=== PATIENT | male | born 1950 | race American Indian/Alaskan Native ===

== ENCOUNTER 2016-08-17 12:00 | Outpatient (CLI) | payer MEDICARE ==
[2016-08-17 12:40] LABS: Blood Urea Nitrogen 13 mg/dL (9-20)
[2016-08-17] MEDS ORDERED: NACL ONE (12:58)
--- NOTE | 2016-08-17 14:45 | Cat Scan Report ---
CT HEAD WITH CONTRAST: HISTORY: Left parotid mass. Serial contiguous axial images were obtained through the cranium, both before and after the administration of intravenous contrast material. The ventricles are normal in size and appearance. There is no mass effect or midline shift. No areas of abnormally increased or decreased attenuation are seen. No mass lesion is seen. The mastoid air cells and visualized portions of the sinuses are normal. The left parotid mass is not included in this exam. Please refer to the CT neck with contrast exam performed earlier today. IMPRESSION: Cranial CT scan within normal limits.
--- NOTE | 2016-08-17 14:48 | Cat Scan Report ---
CT NECK WITH CONTRAST: HISTORY: Left parotid mass. TECHNIQUE: Helical CT following IV contrast. Sagittal and coronal reformatted images. FINDINGS: A well circumscribed ovoid lesion in the left parotid gland measures 4.9 x 3.3 cm in axial plane. Internal density measures 3 Hounsfield units which is consistent with a cyst. There is no appreciable soft tissue component, calcifications or internal enhancement. The right parotid gland and submandibular glands are normal. The remaining soft tissue structures of the neck are within normal limits. The parapharyngeal soft tissues are unremarkable. Normal thyroid gland. Multilevel cervical spondylosis is evident. No suspicious bony lesion. 4.4 x 2.5 cm lipoma in the right occipital soft tissues is noted. IMPRESSION: 4.9 x 3.3 cm left parotid cyst. Overall, this has benign characteristics on CT. Consider further evaluation with ultrasound as needed. This should be amendable to ultrasound-guided aspiration if this lesion is truly cystic.
== END 2016-08-17 12:01 | disposition home or self-care (01) ==
LOC: CT 12:00
PROVIDERS: ATTEND Surgery
DX: D17.79 Benign lipomatous neoplasm of other sites (principal); K11.6 Mucocele of salivary gland; M47.892 Other spondylosis, cervical region
CPT/HCPCS: 36415; 70460; 70491; 82565; 84520; Q9967

== ENCOUNTER 2016-09-11 09:43 | Day surgery (SDC) | payer MEDICARE ==
--- NOTE | 2016-09-06 08:33 | Admit Criteria Form ---
Admission Criteria Documentation: AMBULATORY SURGERY EXCEPTION CRITERIA Ambulatory Surgery Exception Criteria ( Place 'X' for any and all applicable criteria): Surgery or procedure performed on ambulatory basis may require inpatient stay for[A] ANY ONE of the following(1)(2)(3)(4)(5)(6)(7)(8)(9): [X] I. A preoperative situation, condition, or finding that warrants inpatient stay as indicated by ANY ONE of the following: [X] a) Inpatient care needed because of severity of a disease or condition rather than the surgery (eg, severe cardiac or respiratory disease, severe infection) (15) (16 ) (17) (18) [] b) Emergent procedure (eg, angioplasty for acute ischemia)(19) [] c) Complex surgical approach or situation as indicated by ANY ONE of the following(3): [] i) Open approach needed instead of usual endoscopic, transcatheter, or other less invasive procedure [] ii) Difficult approach because of previous operation [] iii) Airway monitoring required after open neck procedures(20)(21) [] iv) Large mass requiring unusually extensive dissection [] v) Additional complicating feature requiring inpatient care (eg, drain management)(22(23): [] d) Major surgery in a pt with high anesthetic risk as indicated by ANY ONE of the following (2)(3)(5)(7)(8): [] i) ASA risk class III or higher (severe systemic disease impairing function) [D] [] ii) Advanced age (eg, older than 85 years)(14)(24) [] iii) Symptomatic heart failure(25) [] iv) Symptomatic asthma or COPD(8)(21) [] v) Morbid obesity with hemodynamic or respiratory problems(20)( 21)(26)(27) [] vi) Obstructive sleep apnea(20)(21) [] vii) Former premature infants who are younger than 60 weeks [] viii) High risk for severe postoperative abnormalities (eg, severe postoperative hypocalcemia after parathyroidectomy for severe hyperparathyroidism)(27)( 28) [] ix) Unstable angina(25) [] e) Drug-related risk requiring inpatient stay as indicated by ANY ONE of the following(5)(10)(14)(32)(33) [] i) Procedure requires discontinuing drugs or other therapy (eg , antiarrhythmic medication, antiseizure medication), which necessitates inpatient observation or treatment.(18)(31) [] ii) Major surgery and high risk drug use as indicated by ANY ONE of the following: [] 1) Active abuse of cocaine or similar drug [] 2) Monoamine oxidase inhibitor use [] 3) Other drug identified as posing risk [] f) Inadequate outpatient care situation as indicated by ANY ONE of the following(5)(10)(14)(32)(33) [] i) Patient lives remote from medical facility and procedure has urgent complication potential, and temporary nearby residence cannot be arranged [] ii) Patient will have postprocedure incapacitation and inadequate assistance at home, or alternative level of care cannot be arranged. [] iii) Patient will have long general anesthesia or procedure side effect resolution time, and competent person to stay with patient on first postoperative night at home or alternative level of care cannot be arranged. []iv) Other inadequate outpatient situation that cannot be handled by other means [] II. A perioperative event, condition, or finding that warrants inpatient stay as indicated by ANY ONE of the following (1)(2)(3): [] a) Inadequate physiologic recovery: cardiovascular, respiratory, or hemodynamic status not normal or near preoperative baseline(18) [] b) Hemodynamic instability [] c) Patient not alert with near normal or baseline mental status [] d) Temperature not normal or as expected and not appropriate for outpatient treatment of condition [] e) Ambulatory or appropriate activity level status not yet achieved post procedure [E](34)(35)(36) [] f) Operative site not appropriate (eg, unexpected or excessive drainage or bleeding) [] g) Postoperative effects not resolved or adequately managed (eg, significant pain or vomiting not appropriate for outpatient or next level of care)(10)(12) [] h) Complicating features requiring inpatient care as indicated by ANY ONE of the following(37): [] i) Severe complications of procedure (eg, bowel injury, airway compromise, vascular injury,severe hemorrhage) [] ii) Extensive (eg, dissection far beyond usual scope of procedure ) or prolonged (eg, 120 minutes beyond usual) surgery needed requiring inpatient postoperative care [] iii) Conversion to an open or complex procedure that requires inpatient care (eg, open vs laparoscopic cholecystectomy, abdominal vs vaginal hysterectomy)(38) [] iv) Comorbid condition or test result identified during or post procedure that requires inpatient care (7) [] v) Malignant hyperthermia(30) [] vi) Other complicating feature requiring inpatient care(22)(23) Inpatient stay may be needed until ALL of the following are present (1)(2)(3)(4) (5)(6)(10)(14)(33)(40): []a) Physiologic recovery: cardiovascular, respiratory, and hemodynamic status normal or near preoperative baseline []b) Hemodynamic stability []c) Patient alert, with near normal or baseline mental status []d) Temperature appropriate: patient afebrile or temperature appropriate for outpt treatment of condition []e) Activity level appropriate: ambulatory or appropriate activity level post procedure []f) Operative site appropriate as indicated by ALL of the following: []i) Site dry or with expected drainage []ii) Any blood noted is as expected for procedure. []g) Postoperative effects resolved or managed as indicated by ALL of the following: []i) Pain management appropriate for outpatient (or next level of) care(10) []ii) Minimal nausea and vomiting: if present, successfully treated with oral medication(12) []iii) Headache, dizziness, or drowsiness (if present) are mild. []h) Voiding status acceptable as indicated by ANY ONE of the following: []i) Voiding spontaneously []ii) No voiding but instructions given for follow-up in 6 to 8 hours []iii) Urinary catheter in place, and instructions given for follow-up []i) Complicating features requiring inpatient care manageable at a lower level of care(37) []j) Comorbid conditions manageable at a lower level of care(37) The original [employer] content created by [employer] has been revised. The portions of the content which have been revised are identified through the use of italic text or in bold, and [employer] has neither reviewed nor approved the modified material. All other unmodified content is copyright [employer]. Please see references footnoted in the original [employer] edition 2016
[~2016-09-11 09:43] MED LIST: ANCEF/STERILE WATER 2 GM/20 ML IV NR
[2016-09-11] MEDS ORDERED: NACL 0.9% 1000 ML 1,000 ML IV SCH (10:00)
[2016-09-11] MEDS ORDERED: VERSED IV NR (10:00)
[2016-09-11] MEDS ORDERED: PEPCID PO NR (10:00)
--- NOTE | 2016-09-11 10:20 | Anesthesia Consultation ---
Anesthesia Consult and Med Hx Date of service: 09/11/16 - Airway Anesthetic Teeth Evaluation: Poor ROM Head & Neck: Adequate Mental/Hyoid Distance: Adequate Mallampati Class: Class II Intubation Access Assessment: Good - Pulmonary Exam CTA: Yes - Cardiac Exam Cardiac Exam: RRR - Pre-Operative Health Status ASA Pre-Surgery Classification: ASA3 Proposed Anesthetic Plan: MAC - Pulmonary Hx Smoking: Yes (CIGARETTES 1/2 PPD X 44 YRS) Hx Sleep Apnea: No - Cardiovascular System Hx Hypertension: Yes (FOR 21 YRS) Hx Heart Attack/AMI: Yes (LIGHT ONE IN 1998) - Central Nervous System Hx Psychiatric Problems: No - Other Systems Hx Alcohol Use: Yes Hx Cancer: No
[2016-09-11] MEDS ORDERED: XYLOCAINE 1%/ EPI 1:100,000 INFILTRATI ONE ×2 (10:46→12:30)
[2016-09-11] MEDS ORDERED: MARCAINE 0.25% INFILTRATI ONE ×2 (10:46→12:30)
[2016-09-11] MEDS ORDERED: DIPRIVAN 10 MG/ML IV ONE ×2 (11:45→12:29)
[2016-09-11] MEDS ORDERED: ZOFRAN ONE (11:45)
[2016-09-11] MEDS ORDERED: XYLOCAINE MPF 2% ONE (11:45)
[2016-09-11] MEDS ORDERED: DECADRON ONE (11:45)
[2016-09-11] MEDS ORDERED: VERSED ONE ×2 (12:14→12:42)
[2016-09-11] MEDS ORDERED: NACL 0.9% IR ONE (12:30)
--- NOTE | 2016-09-11 12:55 | Post Operative Note ---
Pre-op diagnosis: Soft tissue mass scalp Post-op diagnosis: same Findings: Lipoma 5 cm x 5cm Procedure: Excision STM scalp Anesthesia: MAC Surgeon: SUSIE SHEA Estimated blood loss: minimal Pathology: list (lipoma scalp) Specimen disposition: to lab Condition: stable Disposition: PACU
--- NOTE | 2016-09-11 12:56 | Discharge Summary ---
Short Stay Discharge Plan Weight Bearing Status: Full Weight Bearing Diet: regular Wound: open to air Follow up with: PRIMARY CARE, [Primary Care Provider] - 7 Days Prescriptions: HYDROcodone/APAP 5-325 [[place] 5-325 mg TAB] 1 each PO Q4HR PRN #20 tablet PRN Reason: Pain
[2016-09-11 13:16] VITALS: BP 129/98
--- NOTE | 2016-09-20 09:10 | Operative Report ---
Operative Report Operative Report: Preop diagnosis; soft tissue mass scalp Postoperative diagnosis; same Operative procedure-excision of soft tissue mass Surgeon-Edward Date of procedure-August Anesthesia; MAC/local with Xylocaine and Marcaine [id number]-old male presented with a symptomatic visible and palpable mass in occipital area of the scalp measuring 7 cm x 5 cm Findings-subcutaneous lipoma with no inter-musculature extension Procedure patient was placed in supine position with the head tilted to the opposite side and the operative area was prepped and draped. Adequate IV sedation was given. Skin and subcutaneous tissue at the line of incision and the deeper the mass was completely excised and after ascertaining adequate hemostasis the wound was irrigated well with saline solution. Tissues were adequately infiltrated with local anesthesia. A 4 cm crease incision was made, subcutaneous tissue was divided and the mass was released from the subcutaneous tissues and the deeper tissues using minimal amount of cautery.- Sponge and instrument counts were reported to be correct. Subdermal tissue approximated with 3 0 Vicryl Skin margins were approximated with subcuticular 4 -0 Monocryl sutures. He tolerated the procedure well
== END 2016-09-11 14:30 | disposition home or self-care (01) ==
LOC: OR 09:43
PROVIDERS: ATTEND Surgery
DX: D17.0 Benign lipomatous neoplasm of skin and subcutaneous tissue of head, face and neck (principal); I11.0 Hypertensive heart disease with heart failure; I50.9 Heart failure, unspecified; I48.91 Unspecified atrial fibrillation; F17.210 Nicotine dependence, cigarettes, uncomplicated; Z79.899 Other long term (current) drug therapy; Z72.89 Other problems related to lifestyle; Z80.9 Family history of malignant neoplasm, unspecified
CPT/HCPCS: 21012; 88304; J0690; J1100; J2250; J2405; J2704; J7030; 88307

== ENCOUNTER 2017-01-09 09:27 | Emergency (ER) | payer MEDICARE ==
--- NOTE | 2017-01-09 10:28 | Cat Scan Report ---
CT scan of head without contrast: History: Neuro deficits. Findings: Ventricles are normal in size and midline in location. Mild cortical atrophy. No evidence of acute ischemia, hemorrhage or mass. No extra-axial fluid collection. Normal brainstem and cerebellum. Normal sinuses and mastoid air cells. Impression: Mild cortical atrophy. No acute intracranial abnormality.
[2017-01-09 10:33] LABS: Basophils % (Auto) 0.9 % (0.0-1.8); Eosinophils % (Auto) 2.8 % (0.0-4.3); Hematocrit 37.7 % (35.5-45.6); Hemoglobin 11.7 gm/dl (11.8-15.2); Mean Corpuscular HGB Conc 31 % (32-34); Mean Corpuscular Volume 78 fl (84-94); Platelet Count 153 K/mm3 (140-440); Red Blood Count 4.86 M/mm3 (3.65-5.03); Red Cell Distribution Width 15.7 % (13.2-15.2); White Blood Count 4.1 K/mm3 (4.5-11.0)
[2017-01-09 10:34] LABS: Mean Corpuscular Hemoglobin 24 pg (28-32)
[2017-01-09 10:50] LABS: INR 0.99 (0.87-1.13); Partial Thromboplastin Time 29.2 Sec. (24.2-36.6)
[2017-01-09 10:55] LABS: Anion Gap 15 mmol/L; BUN/Creatinine Ratio 9; Blood Urea Nitrogen 7 mg/dL (9-20); Calcium 8.9 mg/dL (8.4-10.2); Carbon Dioxide 26 mmol/L (22-30); Chloride 101.8 mmol/L (98-107); Glucose 104 mg/dL (75-100); Potassium 3.6 mmol/L (3.6-5.0); Sodium 139 mmol/L (137-145)
[2017-01-09 12:53] VITALS: BP 133/78
== END 2017-01-09 12:54 | disposition left against medical advice (07) ==
LOC: ED 09:27
DX: R20.0 Anesthesia of skin (principal); Z53.21 Procedure and treatment not carried out due to patient leaving prior to being seen by health care provider
CPT/HCPCS: 36415; 70450; 80048; 84484; 85025; 85610; 85670; 85730; 93005; 93010

== ENCOUNTER 2017-09-22 22:43 | Inpatient (IN) | payer MEDICARE ==
[2017-09-22] MEDS ORDERED: BABY ASPIRIN PO ONE (23:10)
--- NOTE | 2017-09-22 23:16 | Emergency Department Report ---
ED Syncope HPI - General Chief Complaint: Syncope Stated Complaint: LETHARGIC Time Seen by Provider: 09/22/17 23:03 Source: patient, family, EMS - History of Present Illness Initial Comments: Patient is 67-year-old male with history of carotid artery disease status post multiple stents before. Patient brought to the ER via EMS after a syncopal episode that continued for approximately 4 minutes. Family report patient told him that his heart was racing and then he started jerking and that he passed out. His stated that this is typical for him when he had his heart attack before. EMS reported that the patient blood pressure initially was 65/42. Patient is currently alert oriented 3 able to give clear history. Patient denied any chest pain or shortness of breath. He stated that he does not remember exactly what happened. Patient denied any fever, nausea or vomiting. Timing/Prior Episodes: remote history Context: sitting Loss of Consciousness: prolonged (minutes) Current Symptoms: back to normal - Related Data Allergies/Adverse Reactions: Allergies No Known Allergies Allergy (Verified 04/29/15 11:28) Home Medications: Ambulatory Orders Metoprolol [Lopressor TAB] 50 mg PO Q12H #60 tablet 01/27/16 Rivaroxaban [Xarelto] 20 mg PO QDAY 09/05/16 HYDROcodone/APAP 5-325 [[place] 5-325 mg TAB] 1 each PO Q4HR PRN #20 tablet ED Review of Systems ROS: Stated complaint: LETHARGIC Other details as noted in HPI Comment: All other systems reviewed and negative Constitutional: denies: chills, fever Respiratory: denies: cough Cardiovascular: denies: chest pain, palpitations, dyspnea on exertion, orthopnea , edema, syncope, paroxysmal nocturnal dyspnea Gastrointestinal: denies: abdominal pain, nausea, vomiting, diarrhea, constipation, hematemesis, melena, hematochezia Genitourinary: denies: urgency, dysuria, frequency, hematuria, discharge Neurological: denies: headache, weakness, numbness, paresthesias, confusion, abnormal gait ED Past Medical Hx - Past Medical History Hx Hypertension: Yes (FOR 21 YRS) Hx Heart Attack/AMI: Yes (LIGHT ONE IN 1998) Hx Congestive Heart Failure: Yes Hx HIV: No Additional medical history: AFlutter,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 - Surgical History Hx Coronary Stent: Yes Additional Surgical History: RIGHT WRIST SURGERY, Removal of left facial tumor, Removal of tumor from back of head - Social History Smoking Status: Never Smoker Substance Use Type: None - Medications Home Medications: Home Medications Medication Instructions Recorded Confirmed Last Taken Type Metoprolol [Lopressor TAB] 50 mg PO Q12H #60 tablet 01/27/16 09/22/17 09/11/16 Rx Rivaroxaban [Xarelto] 20 mg PO QDAY 09/05/16 09/22/17 09/06/16 History HYDROcodone/APAP 5-325 [[place] 1 each PO Q4HR PRN #20 tablet 09/11/16 09/22/17 Unknown Rx 5-325 mg TAB] ED Physical Exam - General Limitations: No Limitations General appearance: alert, in no apparent distress - Head Head exam: Present: atraumatic, normocephalic, normal inspection - Eye Eye exam: Present: normal appearance, PERRL - ENT ENT exam: Present: normal exam, normal orophraynx, mucous membranes moist - Neck Neck exam: Present: normal inspection, full ROM. Absent: tenderness, meningismus, lymphadenopathy, thyromegaly - Respiratory Respiratory exam: Present: normal lung sounds bilaterally - Cardiovascular Cardiovascular Exam: Present: regular rate, normal rhythm, normal heart sounds - GI/Abdominal GI/Abdominal exam: Present: soft, normal bowel sounds. Absent: distended, tenderness, guarding, rebound, rigid, organomegaly, mass, bruit, pulsatile mass , hernia - Extremities Exam Extremities exam: Present: normal inspection, full ROM, normal capillary refill - Back Exam Back exam: Present: normal inspection, full ROM. Absent: tenderness, CVA tenderness (R), CVA tenderness (L), muscle spasm, paraspinal tenderness, vertebral tenderness, rash noted - Neurological Exam Neurological exam: Present: alert, oriented X3, CN II-XII intact, normal gait - Skin Skin exam: Present: warm, intact, normal color ED Course Vital Signs 09/22/17 09/23/17 23:00 00:32 Temperature 97.8 F Pulse Rate 74 88 Respiratory 16 16 Rate Blood Pressure 117/80 Blood Pressure 102/69 [Left] O2 Sat by Pulse 97 96 Oximetry ED Medical Decision Making - Lab Data Result diagrams: 09/22/17 22:40 09/22/17 22:40 - EKG Data -: EKG Interpreted by Me EKG shows normal: sinus rhythm Rate: normal - EKG Data Interpretation: no acute changes - Radiology Data Radiology results: report reviewed Referring Physician: ELHAM AGRAWAL Patient Name: ETHAN SOMMERS Date of : 1950 Sex: Male Report Date: 2017-09-23 Report Status: Finalized Findings [facility] [address] [place] [address] Cat Scan Report Signed Patient: ETHAN SOMMERS MR#: [id number] : 1950 Acct:[id number] Age/Sex: 67 / M ADM Date: 09/22/17 Loc: ED Attending Dr: Ordering Physician: ELHAM AGRAWAL Date of Service: 09/23/17 Procedure(s): CT head/brain wo con Accession Number(s): [id number] cc: ELHAM AGRAWAL FINAL REPORT EXAM: CT HEAD/BRAIN WO CON HISTORY: syncope COMPARISON: CT of the head from December 2016. TECHNIQUE: Axial images obtained skull base through vertex. FINDINGS: No acute intracranial hemorrhage, midline shift or pathologic extra axial fluid collection. Age related volume loss with compensatory dilatation of the ventricular system and chronic small vessel ischemic disease. Otherwise, ace-white differentiation preserved. Calvarium grossly intact. Mild mucosal thickening the visualized paranasal sinuses. Mastoid air cells are clear. IMPRESSION: No grossly acute intracranial abnormality. Mild age related volume loss and chronic small vessel ischemic disease. Transcribed By: LMA Dictated By: MANISHA MAYS MD Electronically Authenticated By: MANISHA MAYS MD Signed Date/Time: 09/23/1718 DD/ TD/TT: 09/23/1718 - Medical Decision Making I discussed the patient with Dr. Shanon Maguire, she agreed to admit the patient to her service. Critical Care Time: Yes Critical care time in (mins) excluding proc time.: 30 Critical care attestation.: If time is entered above; I have spent that time in minutes in the direct care of this critically ill patient, excluding procedure time. ED Disposition Clinical Impression: Hypotensive episode, Syncope and collapse Disposition: - OP ADMIT IP TO THIS HOSP Is pt being admited?: Yes Condition: Stable Instructions: Syncope (ED) Referrals: PRIMARY CARE,MD [Primary Care Provider] - 3-5 Days
--- NOTE | 2017-09-22 23:33 | XRay Report ---
FINAL REPORT EXAM: XR CHEST 1V AP HISTORY: chest pain COMPARISON: None available. FINDINGS: Frontal view(s) of the chest obtained. Mild cardiac enlargement. Shallow inspiration. No focal consolidation or effusion. No pneumothorax. IMPRESSION: Mild cardiac enlargement. No focal consolidation.
[2017-09-22 23:54] LABS: Basophils % (Auto) 0.3 % (0.0-1.8); Eosinophils # (Auto) 0.1 K/mm3 (0.0-0.4); Eosinophils % (Auto) 0.7 % (0.0-4.3); Hematocrit 39.4 % (35.5-45.6); Lymphocytes # (Auto) 3.7 K/mm3 (1.2-5.4); Lymphocytes % (Auto) 49.3 % (13.4-35.0); Mean Corpuscular HGB Conc 33 % (32-34); Mean Corpuscular Hemoglobin 26 pg (28-32); Mean Corpuscular Volume 79 fl (84-94); Monocytes # (Auto) 0.7 K/mm3 (0.0-0.8); Monocytes % (Auto) 8.9 % (0.0-7.3); Platelet Count 157 K/mm3 (140-440); Red Blood Count 4.98 M/mm3 (3.65-5.03); Red Cell Distribution Width 15.8 % (13.2-15.2)
[2017-09-23 00:10] LABS: Partial Thromboplastin Time 24.6 Sec. (24.2-36.6)
[2017-09-23 00:19] LABS: INR 0.95 (0.87-1.13)
--- NOTE | 2017-09-23 00:24 | Cat Scan Report ---
FINAL REPORT EXAM: CT HEAD/BRAIN WO CON HISTORY: syncope COMPARISON: CT of the head from December 2016. TECHNIQUE: Axial images obtained skull base through vertex. FINDINGS: No acute intracranial hemorrhage, midline shift or pathologic extra axial fluid collection. Age related volume loss with compensatory dilatation of the ventricular system and chronic small vessel ischemic disease. Otherwise, ace-white differentiation preserved. Calvarium grossly intact. Mild mucosal thickening the visualized paranasal sinuses. Mastoid air cells are clear. IMPRESSION: No grossly acute intracranial abnormality. Mild age related volume loss and chronic small vessel ischemic disease.
[2017-09-23 00:30] LABS: Albumin 4.3 g/dL (3.9-5); Calcium 9.4 mg/dL (8.4-10.2)
[2017-09-23] MEDS ORDERED: TYLENOL PO PRN (02:28)
[2017-09-23 06:13] LABS: Creatine Kinase MB 5.2 ng/mL (0.0-4.0)
--- NOTE | 2017-09-23 09:05 | History and Physical Report ---
History of Present Illness Date of examination: 09/23/17 Date of admission: 09/23/17 02:32 Chief complaint: #1 dizziness 2. Shortness of breath 3. Passing out at home History of present illness: 67-year-old male admitted via the emergency room yesterday brought by ambulance after patient passed out at home. Patient stated that he started feeling bad after dinner yesterday, he became lightheaded, short of breath and while laying down started feeling dizzy and felt his heart racing. Patient stated that he attempted to get up but was unable to get up and started feeling dizzy. Patient 's stated that patient thereafter started shaking but no seizure activity reported was unable to get up and appeared disoriented and later briefly unresponsive. Patient's stated that the whole episode lasted about 5-10 minutes before the paramedics arrived. Upon arrival of EMS patient's blood pressure was reported to be low. Patient has history of hypertension and previous coronary artery disease and previous coronary stent placement in 2007 and patient stated that he has been otherwise stable but was reported to be having poor circulation in his right lower extremity by his visiting home nurse. 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 Ruiz. Patient denied any associated shortness of breath nausea vomiting or any additional symptoms during episode of dizziness. Patient denied any chest pain since onset of illness. Aside the time of evaluation patient stated that dizziness has subsided and he is not currently short of breath Past History Past Medical History: atrial fib, CAD, hypertension Social history: Family history: hypertension Medications and Allergies Allergies Allergy/AdvReac Type Severity Reaction Status Date / Time No Known Allergies Allergy Verified 04/29/15 11:28 Home Medications Medication Instructions Recorded Confirmed Last Taken Type Metoprolol [Lopressor TAB] 50 mg PO Q12H #60 tablet 01/27/16 09/22/17 09/11/16 Rx Rivaroxaban [Xarelto] 20 mg PO QDAY 09/05/16 09/22/17 09/06/16 History HYDROcodone/APAP 5-325 [[place] 1 each PO Q4HR PRN #20 tablet 09/11/16 09/22/17 Unknown Rx 5-325 mg TAB] Active Meds: Active Medications Acetaminophen (Tylenol) 650 mg PO Q6HR PRN PRN Reason: Pain, Mild (1-3) Metoprolol Tartrate (Lopressor) 50 mg PO Q12H DAVID Rivaroxaban (Xarelto) 20 mg PO QDAY DAVID; Protocol Review of Systems Constitutional: weakness Cardiovascular: palpitations, rapid/irregular heart beat, syncope, lightheadedness, shortness of breath, dyspnea on exertion Respiratory: shortness of breath Neurological: syncope Exam - Physical Exam Narrative exam: GENERAL:[] HEENT: [Head examination showed normocephalic. Patient is not pale, not jaundiced, and not cyanosed.] [Mucous membrane is moist, pharynx is clear, no exudates or hemorrhage. Dentition is normal.] NECK: [Supple. Neck showed good range of motion. There is no adenopathy noted. No jugular venous distention and no thyromegaly.] [Neck auscultation showed no carotid bruit.] CHEST/LUNGS: [Good air exchange bilaterally. Clear to auscultation. There is no respiratory distress noted. Chest percussion normal, symmetrical chest movements with no chest wall tenderness.] HEART/CARDIOVASCULAR: [No murmur. Regular rate and rhythm. S1 and S2 only, no S3 gallop, no S4.] ABDOMEN: [Abdomen is soft, nontender. Patient has normal bowel sounds. There is no abdominal distention. Liver and spleen not palpably enlarged.] SKIN: [There is no rash. There is no edema. There is no diaphoresis.] NEURO: [The patient is awake, alert, and oriented. The patient is cooperative. The patient has no focal neurologic deficits. Cranial nerves 2-12 grossly normal, power is 5/5 in all the extremities tested. The patient has normal speech and gait.] MUSCULOSKELETAL: [There is no tenderness or deformity. There is no limitation range of motion. There is no evidence of acute injury.] EXTREMITIES: [No pedal edema, no varicose veins, good peripheral pulses symmetrical and bilaterally, no pretibial edema, no finger or toe clubbing.] - Constitutional Vitals: Temp Pulse Resp BP Pulse Ox 98.6 F 60 20 107/76 96 09/23/17 07:55 09/23/17 08:00 09/23/17 07:55 09/23/17 07:55 09/23/17 07:55 Results - Labs CBC & Chem 7: 09/22/17 22:40 09/22/17 22:40 Labs: Abnormal lab results 09/22/17 09/22/17 09/23/17 Range/Units 22:40 22:40 05:06 MCV 79 L (84-94) fl MCH 26 L (28-32) pg RDW 15.8 H (13.2-15.2) % Lymph % (Auto) 49.3 H (13.4-35.0) % [place] % (Auto) 8.9 H (0.0-7.3) % Potassium 3.2 L (3.6-5.0) mmol/L Chloride 97.7 L (98-107) mmol/L Glucose 165 H (75-100) mg/dL Total Creatine Kinase 298 H (55-170) units/L CK-MB (CK-2) 5.2 H (0.0-4.0) ng/mL Assessment and Plan - Patient Problems (1) Hypotensive episode Current Visit: Yes Status: Acute (2) Syncope and collapse Current Visit: Yes Status: Acute (3) Hypertension Current Visit: No Status: Acute
[2017-09-23] MEDS: LOPRESSOR PO SCH ×2 (10:55→22:10)
[2017-09-23] MEDS: BABY ASPIRIN PO SCH (10:57)
[2017-09-23 16:54] LABS: Creatine Kinase MB 4.1 ng/mL (0.0-4.0)
[2017-09-23] MEDS: XARELTO PO SCH (18:59)
--- NOTE | 2017-09-24 05:21 | Consultation ---
HISTORY OF PRESENT ILLNESS: The patient is a 67-year-old male known to Dr. Johnson, who has a history of coronary artery disease, hypertension, atrial flutter. The chart describes history of heart failure and carotid disease, but the patient is unaware of this. He states that he feels tachycardia at times and occasionally has orthostatic dizziness. Three weeks ago, he was noted to have a low blood pressure. He had a syncopal episode at home today that was witnessed, lasted a few minutes and hypotension was noted by EMS. He did describe some palpitations, but no chest pain. He was short of breath. There has been no ankle edema or claudication. There has been no strokes or focal neurologic symptoms. Did not describe any GI disorders. He did not describe any infectious symptoms. PAST MEDICAL HISTORY: Smoking, he is a light ex-smoker. Alcohol: No heavy use. MEDICATIONS: See the nurse's list. ALLERGIES: None. OPERATIONS: None listed so far. PHYSICAL EXAMINATION: GENERAL: Well-developed, well-nourished, in no acute distress. Alert, oriented and cooperative. Mental status normal. EYES, NOSE AND THROAT: Unremarkable. NECK: Reveals no JVD or bruits. The right carotid upstroke is somewhat diminished. LUNGS: Clear. No labored respirations. HEART: Regular rhythm with a grade 2 systolic murmur at the left sternal border, possible S4. ABDOMEN: Soft, nontender, no masses. EXTREMITIES: No cyanosis, clubbing or edema. Peripheral pulses are intact, but somewhat diminished. NEUROLOGIC: Grossly symmetrical. SKIN: Clear. 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 IMPRESSION: 1. Syncope: Hypotension was documented. The patient described palpitations and there is a history of paroxysmal atrial flutter, so the palpitations could have been due to atrial flutter, but this would not normally cause syncope. Note that the QT interval is prolonged. The 12-lead shows sinus rhythm. He occasionally has orthostatic dizziness. So, the patient will be monitored for significant arrhythmias and orthostatic should be checked. 2. History of coronary artery disease: No angina. 3. History of carotid disease with diminished right carotid upstroke. 4. Hypertension with an episode of hypotension documented. 5. Vague history of congestive heart failure. 6. History of atrial flutter. 7. Light smoker about 3 cigarettes a day. 8. Systolic murmur: Consider mitral regurgitation. 9. Possible peripheral arterial disease with diminished peripheral pulses and visiting nurse told the patient that test showed some evidence of right leg peripheral vascular disease. PLAN: Check previous workup by Dr. Johnson. Check orthostatics. Monitor rhythm on telemetry. He can possibly go home tomorrow with a 30-day monitor on an outpatient basis. Thank you for this consultation. JOB# [id number] JDS/NTS
--- NOTE | 2017-09-24 09:28 | Discharge Summary ---
Providers - Providers Date of Admission: 09/23/17 02:32 Date of discharge: 09/24/17 Attending physician: ABDIRIZAK OCHOA 09/23/17 02:20 Consult to Cardiology [CONS] Routine Consulting Provider: ANGELA CALDWELL Reason For Exam: cardiac Primary care physician: RN [employer] Hospitalization Reason for admission: status post syncope, lightheadedness and dizziness and palpitation Condition: Stable Hospital course: 67-year-old male who was admitted on account of dizziness and passing out at home. There was no associated no chest pain but patient was short of breath and also reported to be hypotensive by the EMS on arrival. Patient has a history of coronary artery disease with previous stent placement and has had intermittent episode of atrial flutter in the past. Workup so far showed no evidence of cardiac ischemia and cardiac enzymes have been negative so far. Patient has not had any further episodes of dizziness since admission and CT scan of the head which was performed as the emergency room was reported to be negative for any acute cerebrovascular event. Patient was evaluated by medical consultant Dr. Maguire assessed to be stable with planned for outpatient 30 day monitoring for arrhythmia and follow-up with Dr. Roberts. Patient's blood pressure was reported to be running low on current dose of Lopressor and the plan will be to reduce the dose of Lopressor to half of the current dose to 25 mg. Blood pressure will continue to be monitored as outpatient and 30 day monitor for arrhythmia to be assessed by medical consultant as outpatient. Patient is stable at time of evalua and assessed to be stable enough to discharge. Disposition: DC- TO HOME OR SELFCARE - Discharge Diagnoses (1) Hypotensive episode Status: Acute (2) Syncope and collapse Status: Resolved (3) Hypertension Status: Chronic Qualifiers: Hypertension type: essential hypertension Qualified Code(s): I10 - Essential (primary) hypertension Core Measure Documentation - Palliative Care Palliative Care/ Comfort Measures: Not Applicable - Core Measures Any of the following diagnoses?: none Exam - Physical Exam Narrative exam: GENERAL:[] HEENT: [Head examination showed normocephalic. Patient is not pale, not jaundiced, and not cyanosed.] [Mucous membrane is moist, pharynx is clear, no exudates or hemorrhage. Dentition is normal.] NECK: [Supple. Neck showed good range of motion. There is no adenopathy noted. No jugular venous distention and no thyromegaly.] [Neck auscultation showed no carotid bruit.] CHEST/LUNGS: [Good air exchange bilaterally. Clear to auscultation. There is no respiratory distress noted. Chest percussion normal, symmetrical chest movements with no chest wall tenderness.] HEART/CARDIOVASCULAR: [No murmur. Regular rate and rhythm. S1 and S2 only, no S3 gallop, no S4.] ABDOMEN: [Abdomen is soft, nontender. Patient has normal bowel sounds. There is no abdominal distention. Liver and spleen not palpably enlarged.] SKIN: [There is no rash. There is no edema. There is no diaphoresis.] NEURO: [The patient is awake, alert, and oriented. The patient is cooperative. The patient has no focal neurologic deficits. Cranial nerves 2-12 grossly normal, power is 5/5 in all the extremities tested. The patient has normal speech and gait.] MUSCULOSKELETAL: [There is no tenderness or deformity. There is no limitation range of motion. There is no evidence of acute injury.] EXTREMITIES: [No pedal edema, no varicose veins, good peripheral pulses symmetrical and bilaterally, no pretibial edema, no finger or toe clubbing.] - Constitutional Vitals: Temp Pulse Resp BP Pulse Ox 97.8 F 78 18 109/79 97 09/24/17 04:52 09/24/17 07:58 09/24/17 04:52 09/24/17 04:52 09/24/17 04:52 Plan Activity: no restrictions Weight Bearing Status: Full Weight Bearing Diet: low cholesterol, low salt Special Instructions: record daily BP diary Follow up with: PRIMARY CAREMD [Primary Care Provider] - 3-5 Days Prescriptions: Metoprolol [Lopressor] 25 mg PO BID 60 Days tablet
[2017-09-24] MEDS: BABY ASPIRIN PO SCH (10:46)
[2017-09-24] MEDS: LOPRESSOR PO SCH ×2 (10:47→21:41)
--- NOTE | 2017-09-24 12:58 | Progress Note ---
Assessment and Plan 1. Syncope No events on tele ECG unchanged from previous Troponin negative x 3 2. Cardiomyopathy, Unspecified LVEF 44% by MPI and LVEF 50% by echo 01/2016 No ischemia by MPI 01/2016 3. Paroxysmal Atrial Fibrillation Patient is in SR today Continue xarelto and metoprolol 4. Abnormal Findings On Diagnostic Imaging Of Heart And Coronary Circulation Mildly dilated RV and RA by echo 01/2016 Recommendations: Continue tele monitoring Echo and MPI prior to discharge Carotid US prior to discharge Subjective Date of service: 09/24/17 Principal diagnosis: Syncope Interval history: Patient is doing well this morning. He denies chest pain or shortness of breath Objective Vital Signs Temp Pulse Resp BP BP Pulse Ox 09/24/17 11:59 98.3 F 57 L 18 119/79 99 09/24/17 10:47 60 109/80 09/24/17 07:58 78 09/24/17 07:50 98.3 F 69 18 107/78 99 09/24/17 04:52 97.8 F 77 18 109/79 97 09/24/17 00:28 98.0 F 63 18 108/80 98 09/23/17 22:12 70 09/23/17 22:10 69 105/77 09/23/17 20:00 98.2 F 69 18 105/77 94 09/23/17 18:00 74 09/23/17 17:10 98.1 F 74 20 108/81 97 09/23/17 17:08 98.1 F 74 20 108/81 99 - Physical Examination General: Appears Well HEENT: Positive: PERRL Neck: Positive: neck supple Cardiac: Positive: Reg Rate and Rhythm Lungs: Positive: Normal Exam Abdomen: Positive: Soft Extremities: Absent: edema - Labs and Meds Cardiac Enzymes 09/23/17 Range/Units Unknown CK-MB (CK-2) 4.1 H (0.0-4.0) ng/mL
[2017-09-24] MEDS: XARELTO PO SCH (18:10)
[2017-09-25] MEDS ORDERED: LEXISCAN IV ONE (09:00)
[2017-09-25] MEDS: LOPRESSOR PO SCH (10:29)
[2017-09-25] MEDS: BABY ASPIRIN PO SCH (10:29)
--- NOTE | 2017-09-25 10:36 | Treadmill Report ---
INDICATION FOR THE PROCEDURE: Syncope. ORDERING PHYSICIAN: Neda Johnson MD FINDINGS: There is no scintigraphic evidence of myocardial ischemia noted. The left ventricle is normal in size and systolic function. The left ventricular ejection fraction is measured at 60%. Normal wall motion and wall thickening is noted on gated imaging. CONCLUSION: 1. This is a normal perfusion scan with no scintigraphic evidence of myocardial ischemia. 2. This is a low-risk study with a 1-year cardiovascular event rate of less than 1%. JOB# [id number] MARYLIN/RUTHANN
--- NOTE | 2017-09-25 12:02 | Progress Note ---
Assessment and Plan 1. Syncope No events on tele ECG unchanged from previous Troponin negative x 3 LVEF 50-55% Normal MPI this admission < 50% carotid stenosis 2. Cardiomyopathy, Unspecified LVEF 44% by MPI and LVEF 50% by echo 01/2016 No ischemia by MPI 01/2016 3. Paroxysmal Atrial Fibrillation Patient is in SR today Continue xarelto and metoprolol 4. Abnormal Findings On Diagnostic Imaging Of Heart And Coronary Circulation Mildly dilated RV and RA by echo 01/2016 Recommendations: May go home cardiac fonseca Subjective Date of service: 09/25/17 Principal diagnosis: Syncope Interval history: No cardiac events overnight Objective Vital Signs Temp Pulse Resp BP BP Pulse Ox 09/25/17 10:00 63 09/25/17 08:50 81 128/91 09/25/17 08:49 83 118/88 09/25/17 08:48 84 115/86 09/25/17 08:47 91 H 113/83 09/25/17 08:46 79 127/92 09/25/17 08:45 60 125/92 09/25/17 07:32 97.9 F 20 118/88 09/25/17 04:58 98.4 F 68 20 121/88 98 09/25/17 04:19 67 121/88 99 09/25/17 04:18 66 20 121/88 98 09/25/17 01:04 98.2 F 58 L 18 121/88 90 09/25/17 00:02 58 L 98 09/25/17 00:01 98.2 F 57 L 20 121/88 98 09/24/17 21:41 66 140/91 09/24/17 21:20 69 09/24/17 20:43 97.8 F 66 18 140/91 99 09/24/17 19:51 66 99 09/24/17 16:16 98.1 F 63 18 121/82 98 - Physical Examination General: Appears Well HEENT: Positive: PERRL Neck: Positive: neck supple Cardiac: Positive: Reg Rate and Rhythm Lungs: Positive: Normal Exam Abdomen: Positive: Soft Extremities: Absent: edema
--- NOTE | 2017-09-25 12:09 | Progress Note ---
Subjective Date of service: 09/25/17 Principal diagnosis: Syncope Objective - Constitutional Vitals: Vital Signs - 12hr 09/25/17 09/25/17 09/25/17 01:04 04:18 04:19 Temperature 98.2 F Pulse Rate 58 L 66 67 Respiratory 18 20 Rate Blood Pressure 121/88 121/88 Blood Pressure 121/88 [Left] O2 Sat by Pulse 90 98 99 Oximetry 09/25/17 09/25/17 09/25/17 04:58 07:32 08:45 Temperature 98.4 F 97.9 F Pulse Rate 68 60 Respiratory 20 20 Rate Blood Pressure 118/88 125/92 Blood Pressure 121/88 [Left] O2 Sat by Pulse 98 Oximetry 09/25/17 09/25/17 09/25/17 08:46 08:47 08:48 Temperature Pulse Rate 79 91 H 84 Respiratory Rate Blood Pressure 127/92 113/83 115/86 Blood Pressure [Left] O2 Sat by Pulse Oximetry 09/25/17 09/25/17 09/25/17 08:49 08:50 10:00 Temperature Pulse Rate 83 81 63 Respiratory Rate Blood Pressure 118/88 128/91 Blood Pressure [Left] O2 Sat by Pulse Oximetry - Labs CBC & Chem 7: 09/22/17 22:40 09/22/17 22:40
[2017-09-25 12:29] VITALS: BP 116/82
== END 2017-09-25 15:15 | disposition home or self-care (01) | DRG 315 ==
LOC: ED 22:43 → 4A 09-23 02:32
PROVIDERS: ADMIT Internal Medicine; ATTEND Internal Medicine
DX: I95.9 Hypotension, unspecified (principal); I42.9 Cardiomyopathy, unspecified; I48.92 Unspecified atrial flutter; I11.0 Hypertensive heart disease with heart failure; I48.0 Paroxysmal atrial fibrillation; I50.9 Heart failure, unspecified; I25.10 Atherosclerotic heart disease of native coronary artery without angina pectoris; F17.210 Nicotine dependence, cigarettes, uncomplicated; Z95.5 Presence of coronary angioplasty implant and graft; Z82.49 Family history of ischemic heart disease and other diseases of the circulatory system; I25.2 Old myocardial infarction
CPT/HCPCS: 36415; 70450; 71045; 78452; 80053; 82550; 82553; 84484; 85025; 85379; 85610; 85730; 93005; 93010; 93017; 93306; 93880; 99406; A9502; J2785

== ENCOUNTER 2017-12-15 22:53 | Emergency (ER) | payer MEDICARE ==
[2017-12-15 23:23] VITALS: BP 127/89
[2017-12-15 23:48] LABS: Bilirubin,Urine NEG (Negative); Blood,Urine NEG (Negative); Color,Urine Yellow (Yellow); Mucus,Urine FEW /HPF; Protein,Urine <15 mg/dL mg/dL (Negative)
--- NOTE | 2017-12-16 00:16 | XRay Report ---
FINAL REPORT PROCEDURE: XR SHOULDER 2+V RT TECHNIQUE: Right shoulder radiographs including AP views in internal and external rotation and abduction. CPT 06464 HISTORY: Right Shoulder pain COMPARISON: No prior studies are available for comparison. FINDINGS: Fracture (s) and/or Dislocation(s): None . Joint space(s): Mild narrowing of the joint spaces. Soft tissues: Normal . Bone mineralization: Normal . Foreign bodies: None . IMPRESSION: Mild arthritis. No acute fracture or dislocation.
--- NOTE | 2017-12-16 00:26 | Emergency Department Report ---
ED General Adult HPI - General Chief complaint: Extremity Injury, Upper Stated complaint: RIGHT SHOULDER,BACK PAIN Time Seen by Provider: 12/16/17 00:25 Source: patient Mode of arrival: Ambulatory Limitations: No Limitations - History of Present Illness Initial comments: 67-year-old [place] male with a significant past medical history of hypertension A flutter comes in complaining of right shoulder and right side lower back pain. Patient reports that he's been having intermittent shoulder pain that radiates to his bicep. He reports that Matt on it makes it worse movement makes it better. 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 Patient reports taking Goody powders has helped in the last time he took it was 2 days ago. Patient also complains of right flank back pain that radiates to the top of his buttocks. He reports this pain is intermittent in response to Goody powders to patient reports that back pain and joint pain is worse in the morning when he gets up and gets better as she does movement. Patient denies any recent trauma. He denies any urine symptoms no hematuria. He denies any fever no nausea no vomiting. Patient reports that he still tries to take stay active he rides a bike. Patient is on the Xarelto, Lopressor, aspirin. Known drug allergies -: month(s) (1) Location: back, upper extremity Radiation: distal Severity scale (0 -10): 5 Quality: aching Consistency: intermittent Improves with: medication, movement (shoulder) Worsens with: immobilization Associated Symptoms: denies other symptoms Treatments Prior to Arrival: NSAID (Goody powders which reports has helped) - Related Data Home Medications Medication Instructions Recorded Confirmed Last Taken Rivaroxaban [Xarelto] 20 mg PO QDAY 09/05/16 09/22/17 09/06/16 Previous Rx's Medication Instructions Recorded Last Taken Type Aspirin [Aspirin BABY CHEW TAB] 81 mg PO QDAY tab.chew 09/24/17 Unknown Rx Metoprolol [Lopressor] 25 mg PO BID 60 Days tablet 09/24/17 Unknown Rx Rivaroxaban [Xarelto] 20 mg PO QPM tablet 09/24/17 Unknown Rx Acetaminophen [Tylenol Arthritis] 650 mg PO Q8H #30 tablet.er 12/16/17 Unknown Rx Allergies Allergy/AdvReac Type Severity Reaction Status Date / Time No Known Allergies Allergy Verified 04/29/15 11:28 ED Review of Systems ROS: Stated complaint: RIGHT SHOULDER,BACK PAIN Other details as noted in HPI Comment: All other systems reviewed and negative ED Past Medical Hx - Past Medical History Hx Hypertension: Yes (FOR 21 YRS) Hx Heart Attack/AMI: Yes (LIGHT ONE IN 1998) Hx Congestive Heart Failure: Yes Hx HIV: No Additional medical history: AFlutter,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 - Surgical History Hx Coronary Stent: Yes Additional Surgical History: RIGHT WRIST SURGERY, Removal of left facial tumor, Removal of tumor from back of head - Social History Smoking Status: Current Every Day Smoker Substance Use Type: None - Medications Home Medications: Home Medications Medication Instructions Recorded Confirmed Last Taken Type Rivaroxaban [Xarelto] 20 mg PO QDAY 09/05/16 09/22/17 09/06/16 History Aspirin [Aspirin BABY CHEW TAB] 81 mg PO QDAY tab.chew 09/24/17 Unknown Rx Metoprolol [Lopressor] 25 mg PO BID 60 Days tablet 09/24/17 Unknown Rx Rivaroxaban [Xarelto] 20 mg PO QPM tablet 09/24/17 Unknown Rx Acetaminophen [Tylenol Arthritis] 650 mg PO Q8H #30 tablet.er 12/16/17 Unknown Rx ED Physical Exam - General Limitations: No Limitations General appearance: alert, in no apparent distress - Head Head exam: Present: atraumatic, normocephalic - Eye Eye exam: Present: EOMI - ENT ENT exam: Present: mucous membranes moist - Neck Neck exam: Present: normal inspection, full ROM - Respiratory Respiratory exam: Present: normal lung sounds bilaterally. Absent: respiratory distress - Cardiovascular Cardiovascular Exam: Present: regular rate, normal rhythm. Absent: systolic murmur, diastolic murmur, rubs, gallop - GI/Abdominal GI/Abdominal exam: Present: soft. Absent: distended, tenderness - Expanded Upper Extremity Exam Right Shoulder Exam: Present: normal inspection, full ROM. Absent: tenderness Upper Arm exam: Present: normal inspection, full ROM. Absent: tenderness Elbow exam: Present: normal inspection, full ROM. Absent: tenderness, swelling Forearm Wrist exam: Present: normal inspection, full ROM. Absent: tenderness, swelling - Back Exam Back exam: Present: full ROM. Absent: tenderness, muscle spasm - Expanded Back Exam Expanded Back exam: Present: other (patient has a significant curvature which causes a right raise of his hip bone and protrusion of his right scapula) - Neurological Exam Neurological exam: Present: alert, oriented X3 - Psychiatric Psychiatric exam: Present: normal affect, normal mood - Skin Skin exam: Present: warm, dry, intact, normal color. Absent: rash ED Course Vital Signs 12/15/17 23:18 Temperature 98.7 F Pulse Rate 95 H Respiratory 16 Rate Blood Pressure 127/89 O2 Sat by Pulse 98 Oximetry ED Medical Decision Making - Radiology Data Radiology results: report reviewed FINAL REPORT PROCEDURE: XR SHOULDER 2+V RT TECHNIQUE: Right shoulder radiographs including AP views in internal and external rotation and abduction. CPT 45069 HISTORY: Right Shoulder pain COMPARISON: No prior studies are available for comparison. FINDINGS: Fracture (s) and/or Dislocation(s): None . Joint space(s): Mild narrowing of the joint spaces. Soft tissues: Normal . Bone mineralization: Normal . Foreign bodies: None . IMPRESSION: Mild arthritis. No acute fracture or dislocation. Transcribed By: [facility] Dictated By: DEX LOPEZ MD Electronically Authenticated By: DEX LOPEZ MD Signed Date/Time: 12/16/1714 DD/ TD/TT: 12/16/1714 - Medical Decision Making Patient has been evaluated by this provider fast track. On my examinationand has elevation of his right hip and right shoulder with protrusion of his right scapulae. The patient is appears to be a scoliosis. 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 Discussed patient I will discharge him on Tylenol extra strength arthritis medication. And he can follow-up with his primary care provider if his symptoms persist or gets worse. Patient verbalized understanding. Critical care attestation.: If time is entered above; I have spent that time in minutes in the direct care of this critically ill patient, excluding procedure time. ED Disposition Clinical Impression: Strain of right biceps muscle Qualifiers: Encounter type: initial encounter Qualified Code(s): S46.211A - Strain of muscle, fascia and tendon of other parts of biceps, right arm, initial encounter Right lumbar pain Qualifiers: Chronicity: acute Sciatica presence: without sciatica Qualified Code(s): M54.5 - Low back pain Scoliosis deformity of spine Qualifiers: Scoliosis type: unspecified scoliosis Spinal region: lumbar Qualified Code(s): M41.9 - Scoliosis, unspecified Disposition: DC-01 TO HOME OR SELFCARE Is pt being admited?: No Does the pt Need Aspirin: No Condition: Stable Instructions: Low Back Strain (ED), Arthralgia (ED) Additional Instructions: Please take medication as prescribed. Follow up with her primary care provider if symptoms persist or gets worse. Prescriptions: Acetaminophen [Tylenol Arthritis] 650 mg PO Q8H #30 tablet.er Referrals: Your,Provider [Other] - 3-5 Days
== END 2017-12-16 01:00 | disposition home or self-care (01) ==
LOC: ED 22:53
DX: S46.211A Strain of muscle, fascia and tendon of other parts of biceps, right arm, initial encounter (principal); M54.5 Low back pain; M41.9 Scoliosis, unspecified; I11.0 Hypertensive heart disease with heart failure; I50.9 Heart failure, unspecified; I25.2 Old myocardial infarction; F17.200 Nicotine dependence, unspecified, uncomplicated; Z95.1 Presence of aortocoronary bypass graft; X50.0XXA Overexertion from strenuous movement or load, initial encounter; Y93.89 Activity, other specified; Y92.89 Other specified places as the place of occurrence of the external cause; Y99.8 Other external cause status
CPT/HCPCS: 81001; 99283

== ENCOUNTER 2018-05-27 17:14 | Inpatient (IN) | payer MEDICARE ==
[2018-05-27] MEDS ORDERED: BABY ASPIRIN PO ONE (17:22)
[2018-05-27] MEDS ORDERED: NACL 0.9% 1000 ML 1,000 ML IV ONE (17:22)
--- NOTE | 2018-05-27 17:29 | Emergency Department Report ---
ED General Adult HPI - General Chief complaint: Dizziness Stated complaint: SHAKING Time Seen by Provider: 05/27/18 17:22 Source: patient, EMS Mode of arrival: Stretcher Limitations: No Limitations - History of Present Illness Initial comments: Patient is 68 years old male with history of congestive heart failure atrial flutter, hypertension and coronary artery disease. Patient presented to the ER via EMS after patient became dizzy while he was walking. EMS stated that patient heart rate was 220 and he came down to 110 while he is laying down. Kvng polanco stated that he felt dizzy but denied any chest pain, shortness of breath or weakness. Patient denied any fever or chills recently. No cough, nausea or vomiting or diarrhea. - Related Data Home Medications Medication Instructions Recorded Confirmed Last Taken Rivaroxaban [Xarelto] 20 mg PO QDAY 09/05/16 02/25/18 09/06/16 Previous Rx's Medication Instructions Recorded Last Taken Type Aspirin [Aspirin BABY CHEW TAB] 81 mg PO QDAY tab.chew 09/24/17 Unknown Rx Metoprolol [Lopressor] 25 mg PO BID 60 Days tablet 09/24/17 Unknown Rx Acetaminophen [Tylenol Arthritis] 650 mg PO Q8H #30 tablet.er 12/16/17 Unknown R x Ondansetron [Zofran Odt] 4 mg PO Q8HR PRN #14 tab.rapdis 02/25/18 Unknown Rx traMADol [Ultram] 50 mg PO Q6HR PRN #14 tablet 02/25/18 Unknown Rx Allergies Allergy/AdvReac Type Severity Reaction Status Date / Time No Known Allergies Allergy Verified 04/29/15 11:28 ED Review of Systems ROS: Stated complaint: SHAKING Other details as noted in HPI Comment: All other systems reviewed and negative Constitutional: denies: chills, fever Respiratory: denies: cough, shortness of breath, SOB with exertion, SOB at rest Cardiovascular: palpitations. denies: chest pain, dyspnea on exertion, orthopnea Gastrointestinal: denies: abdominal pain, nausea, vomiting, diarrhea, constipation, hematemesis, melena, hematochezia Musculoskeletal: denies: back pain Neurological: other (dizziness). 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 - Surgical History Past Surgical History?: Yes Hx Coronary Stent: Yes Additional Surgical History: RIGHT WRIST SURGERY, Removal of left facial tumor, Removal of tumor from back of head - Social History Smoking Status: Current Every Day Smoker Substance Use Type: Alcohol - Medications Home Medications: Home Medications Medication Instructions Recorded Confirmed Last Taken Type Rivaroxaban [Xarelto] 20 mg PO QDAY 09/05/16 02/25/18 09/06/16 History Aspirin [Aspirin BABY CHEW TAB] 81 mg PO QDAY tab.chew 09/24/17 02/25/18 Unknown Rx Metoprolol [Lopressor] 25 mg PO BID 60 Days tablet 09/24/17 02/25/18 Unknown Rx Acetaminophen [Tylenol Arthritis] 650 mg PO Q8H #30 tablet.er 12/16/17 02/25/18 Unknown Rx Ondansetron [Zofran Odt] 4 mg PO Q8HR PRN #14 tab.rapdis 02/25/18 Unknown Rx traMADol [Ultram] 50 mg PO Q6HR PRN #14 tablet 02/25/18 Unknown Rx ED Physical Exam - General Limitations: No Limitations General appearance: alert, in no apparent distress - Head Head exam: Present: atraumatic, normocephalic, normal inspection - Eye Eye exam: Present: normal appearance, PERRL - ENT ENT exam: Present: normal exam, normal orophraynx, mucous membranes moist - Neck Neck exam: Present: normal inspection, full ROM. Absent: tenderness, meningismus, lymphadenopathy, thyromegaly - Respiratory Respiratory exam: Present: normal lung sounds bilaterally - Cardiovascular Cardiovascular Exam: Present: regular rate, tachycardia - GI/Abdominal GI/Abdominal exam: Present: soft, normal bowel sounds. Absent: distended, tenderness, guarding, rebound, rigid - Extremities Exam Extremities exam: Present: normal inspection, full ROM, normal capillary refill - Back Exam Back exam: Present: normal inspection, full ROM. Absent: tenderness, CVA tenderness (R), CVA tenderness (L), muscle spasm, paraspinal tenderness, vertebral tenderness - Neurological Exam Neurological exam: Present: alert, oriented X3, CN II-XII intact, normal gait - Skin Skin exam: Present: warm, intact, normal color ED Medical Decision Making - Lab Data Result diagrams: 05/27/18 17:40 05/27/18 17:40 - EKG Data -: EKG Interpreted by Me EKG shows normal: sinus rhythm Rate: tachycardia - EKG Data Interpretation: no acute changes - Radiology Data Radiology results: report reviewed - Medical Decision Making Patient is 68 years old male with history of congestive heart failure atrial flutter, hypertension and coronary artery disease. Patient presented to the ER via EMS after patient became dizzy while he was walking. EMS stated that patient heart rate was 220 and he came down to 110 while he is laying down. Patient stated that he felt dizzy but denied any chest pain, shortness of breath or weakness. Patient denied any fever or chills recently. No cough, nausea or vomiting or diarrhea. Patient remained stable in the ER with a heart rate ranging between 110-120. Patient received Lopressor 5 mg IV. Given patient history of atrial flutter L believe patient probably had one episode of atrial flutter before coming to the emergency room. First set of troponin is negative. I discussed the patient is Dr. Medley he advised to admit the patient to telemetry and he will follow-up with the patient. Critical Care Time: Yes Critical care time in (mins) excluding proc time.: 30 Critical care attestation.: If time is entered above; I have spent that time in minutes in the direct care of this critically ill patient, excluding procedure time. ED Disposition Clinical Impression: Alcohol intoxication, Atrial flutter, paroxysmal, Dizziness Disposition: -09 OP ADMIT IP TO THIS HOSP Is pt being admited?: Yes Condition: Stable
[2018-05-27 18:01] LABS: Basophils % (Auto) 0.5 % (0.0-1.8); Eosinophils # (Auto) 0.1 K/mm3 (0.0-0.4); Eosinophils % (Auto) 1.9 % (0.0-4.3); Hematocrit 34.5 % (35.5-45.6); Lymphocytes # (Auto) 1.4 K/mm3 (1.2-5.4); Lymphocytes % (Auto) 37.5 % (13.4-35.0); Mean Corpuscular HGB Conc 32 % (32-34); Mean Corpuscular Volume 84 fl (84-94); Monocytes # (Auto) 0.3 K/mm3 (0.0-0.8); Monocytes % (Auto) 7.3 % (0.0-7.3); Platelet Count 108 K/mm3 (140-440); Red Cell Distribution Width 17.4 % (13.2-15.2)
[2018-05-27 18:11] LABS: INR 1.47 (0.87-1.13); Partial Thromboplastin Time 36.6 Sec. (24.2-36.6)
[2018-05-27 18:17] LABS: BUN/Creatinine Ratio 11; Blood Urea Nitrogen 10 mg/dL (9-20); Calcium 8.6 mg/dL (8.4-10.2); Hemolysis Index 2
[2018-05-27] MEDS ORDERED: LOPRESSOR IV ONE (19:14)
--- NOTE | 2018-05-27 19:40 | XRay Report ---
PROCEDURE: XR CHEST ROUTINE 2V HISTORY: Chest Pain FINDINGS: Frontal frontal and lateral views the chest were acquired and compared to the prior examina tion of February 25, 2018. There is cardiomegaly. There is are clear. There is no consolidative pulmonary infiltrate. There is n o pneumothorax. There is scoliosis, convex right at T5-T6 of approximately 20 degrees. IMPRESSION: Cardiomegaly This document is electronically signed by Shahbaz Pablo MD., May 27 2018 07:38:07 PM ET
--- NOTE | 2018-05-28 05:55 | Event Note ---
Date: 05/27/18 See dictated H/p in reports [facility]
[2018-05-28] MEDS ORDERED: ZOFRAN IV PRN (06:02)
[2018-05-28] MEDS ORDERED: DILAUDID IV PRN (06:02)
[2018-05-28] MEDS ORDERED: TYLENOL PO PRN (06:02)
[2018-05-28] MEDS ORDERED: SODIUM CHLORIDE FLUSH SYRINGE 10 ML IV PRN (06:02)
[2018-05-28] MEDS ORDERED: PERCOCET 5/325 PO PRN (06:02)
[2018-05-28] MEDS ORDERED: CARDIZEM PO SCH (06:06)
[2018-05-28 06:27] LABS: Amphetamine Screen,Urine PRESUMPTIVE NEGATIVE; Benzodiazepines Screen,Urine PRESUMPTIVE NEGATIVE; Cannabinoid Screen,Urine PRESUMPTIVE NEGATIVE; Cocaine Screen,Urine PRESUMPTIVE NEGATIVE; Methadone Screen,Urine PRESUMPTIVE NEGATIVE; Opiate Screen,Urine PRESUMPTIVE NEGATIVE
[2018-05-28 07:26] LABS: Alanine Aminotransferase 14 units/L (7-56); Albumin 3.6 g/dL (3.9-5); BUN/Creatinine Ratio 11; Blood Urea Nitrogen 10 mg/dL (9-20); Calcium 8.8 mg/dL (8.4-10.2); Hemolysis Index 19
--- NOTE | 2018-05-28 07:27 | History and Physical Report ---
CHIEF COMPLAINT: Palpitations and dizziness for a few hours. HISTORY OF PRESENT ILLNESS: A 68-year-old male with history of hypertension and atrial fibrillation, comes in for being dizzy and severe palpitations, especially with minimal exertion. Also, shortness of breath with exertion. No chest pain. No orthopnea. No cough. No nausea, no vomiting. No fever or chills. No exacerbating or precipitating factors. Exacerbated by walking and minimal exertion otherwise. 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 PAST SURGICAL HISTORY: Coronary stents in the past, right wrist surgery, removal of left facial tumor, removal of tumor from back of head. SOCIAL HISTORY: Smokes about a pack a day. CURRENT MEDICATIONS: Metoprolol 25 mg twice a day and Xarelto 20 mg once a day. REVIEW OF SYSTEMS: Significant for palpitations and shortness of breath. No chest pain. Dizziness. Otherwise, review of systems negative. PHYSICAL EXAMINATION: GENERAL: Elderly male, cooperative during examination. VITAL SIGNS: Blood pressure is 120/96. Temperature is 97.9. Pulse is 103. Respirations are 12. HEENT: Unremarkable. Pupils equal and reactive. NECK: Supple, no lymphadenopathy, no thyromegaly. LUNGS: Clear to auscultation and percussion. CARDIOVASCULAR SYSTEM: S1, S2 heard. No gallop, no murmur, no rub. Apical impulse in left fifth intercostal space in midclavicular line. ABDOMEN: Soft and benign. No hepatosplenomegaly. No guarding, no rigidity. Hernial orifices are normal. EXTREMITIES: Good pedal pulses. No pedal edema. CENTRAL NERVOUS SYSTEM: Alert and oriented x 4, nonfocal exam. SKIN: Normal. DIAGNOSTIC DATA: EKG shows sinus tachycardia, heart rate of [address] per minute. No acute ST-T wave changes. Chest x-ray, no acute infiltrates. The second EKG is also sinus tachycardia, heart rate of 115 per minute, left anterior fascicular block present. ASSESSMENT AND PLAN: 1.Atrial flutter with rapid ventricular rate, was initiated on po Cardizem. Will get Cardiology consult. 2. Congestive heart failure, will get echocardiogram for ejection fraction, Lasix 40 mg q. 24 when BP is better. Torsemide on HOld 3 Hypertension, continue metoprolol.Hydralazine on Hold 4. Anticoagulation, continue Xarelto. 5. Deep venous thrombosis prophylaxis, the patientis on Xarelto. Also, gastrointestinal prophylaxis. JOB# [id number] MARIO/RUTHANN THORNTON
[2018-05-28] MEDS: LOPRESSOR PO SCH ×2 (10:42→23:32)
[2018-05-28] MEDS: BABY ASPIRIN PO SCH (10:42)
[2018-05-28] MEDS: SODIUM CHLORIDE FLUSH SYRINGE 10 ML IV SCH (10:42)
[2018-05-28] MEDS: XARELTO PO SCH (10:42)
[2018-05-28] MEDS: PEPCID PO SCH ×2 (10:42→23:32)
--- NOTE | 2018-05-28 10:53 | Consultation ---
History of Present Illness Consult date: 05/28/18 Consult reason: arrhythmia History of present illness: Patient is a 68 year old male that has history of paroxysmal atrial flutter, on xarelto for oral anticoagulation, who was brought in with shortness of breath, dizziness and palpitations, found to be in rapid atrial flutter. Cardiac consultation requested. In the emergency department, patient was treated with intravenous metoprolol but remains in atrial flutter. Rate is now controlled. Kvng polanco denies chest pain and there was no syncope. Reports intermittent headaches. at bedside reports the patient has an episode of "shaking all over" a few days ago. Patient denies history of seizures. Medications and Allergies Allergies Allergy/AdvReac Type Severity Reaction Status Date / Time No Known Allergies Allergy Verified 04/29/15 11:28 Home Medications Medication Instructions Recorded Confirmed Last Taken Type Rivaroxaban [Xarelto] 20 mg PO QDAY 09/05/16 05/27/18 09/06/16 History Aspirin [Aspirin BABY CHEW TAB] 81 mg PO QDAY tab.chew 09/24/17 05/27/18 Unknown Rx Metoprolol [Lopressor] 25 mg PO BID 60 Days tablet 09/24/17 05/27/18 Unknown Rx Active Meds: Active Medications Acetaminophen (Tylenol) 650 mg PO Q4H PRN PRN Reason: Pain MILD(1-3)/Fever >100.5/CHAMBERS Aspirin (Baby Aspirin) 81 mg PO QDAY [facility] Last Admin: 05/28/18 10:42 Dose: 81 mg Documented by: Diltiazem HCl (Cardizem) 30 mg PO Q6HR [facility] Last Admin: 05/28/18 07:04 Dose: 30 mg Documented by: Famotidine (Pepcid) 20 mg PO BID [facility] Last Admin: 05/28/18 10:42 Dose: 20 mg Documented by: Hydromorphone HCl (Dilaudid) 0.5 mg IV Q3H PRN PRN Reason: Pain , Severe (7-10) Metoprolol Tartrate (Lopressor) 25 mg PO BID [facility] Last Admin: 05/28/18 10:42 Dose: 25 mg Documented by: Ondansetron HCl (Zofran) 4 mg IV Q8H PRN PRN Reason: Nausea And Vomiting Oxycodone/Acetaminophen (Percocet 5/325) 1 tab PO Q6H PRN PRN Reason: Pain, Moderate (4-6) Rivaroxaban (Xarelto) 20 mg PO QDAY [facility]; Protocol Last Admin: 05/28/18 10:42 Dose: 20 mg Documented by: Sodium Chloride (Sodium Chloride Flush Syringe 10 Ml) 10 ml IV BID [facility] Last Admin: 05/28/18 10:42 Dose: 10 ml Documented by: Sodium Chloride (Sodium Chloride Flush Syringe 10 Ml) 10 ml IV PRN PRN PRN Reason: LINE FLUSH Physical Examination Vital Signs Pulse Ox 97 05/27/18 17:14 General appearance: no acute distress HEENT: Positive: PERRL Neck: Positive: trachea midline Cardiac: Positive: irregularly irregular Lungs: Positive: Decreased Breath Sounds Neuro: Positive: Grossly Intact Results 05/27/18 17:40 05/28/18 06:21 Cardiac Enzymes 05/28/18 Range/Units 06:21 AST 34 (5-40) units/L Coagulation 05/27/18 Range/Units 17:40 PT 18.8 H (12.2-14.9) Sec. INR 1.47 H (0.87-1.13) APTT 36.6 (24.2-36.6) Sec. CBC 05/27/18 Range/Units 17:40 WBC 3.8 L (4.5-11.0) K/mm3 RBC 4.10 (3.65-5.03) M/mm3 Hgb 11.0 L (11.8-15.2) gm/dl Hct 34.5 L (35.5-45.6) % Plt Count 108 L (140-440) K/mm3 Lymph # 1.4 (1.2-5.4) K/mm3 [place] # 0.3 (0.0-0.8) K/mm3 Eos # 0.1 (0.0-0.4) K/mm3 Baso # 0.0 (0.0-0.1) K/mm3 Comprehensive Metabolic Panel 05/27/18 05/28/18 Range/Units 17:40 06:21 Sodium 139 141 (137-145) mmol/L Potassium 4.4 4.7 (3.6-5.0) mmol/L Chloride 102.9 109.6 H (98-107) mmol/L Carbon Dioxide 22 21 L (22-30) mmol/L BUN 10 10 (9-20) mg/dL Creatinine 0.9 0.9 (0.8-1.5) mg/dL Glucose 97 101 H (75-100) mg/dL Calcium 8.6 8.8 (8.4-10.2) mg/dL AST 34 (5-40) units/L ALT 14 (7-56) units/L Alkaline Phosphatase 100 (35-129) units/L Total Protein 6.4 (6.3-8.2) g/dL Albumin 3.6 L (3.9-5) g/dL Assessment and Plan Symptomatic atrial flutter on metoprolol and cardizem on xarelto for oral anticoagulation Normal MPI 09/2017. Normal LVEF 50-55% on echo 09/2017.
[2018-05-28] MEDS ORDERED: CORDARONE 150 MG in D5W 97 ML IV ONE (11:08)
[2018-05-28] MEDS ORDERED: CORDARONE 900 MG in D5W 482 ML IV SCH (12:00)
--- NOTE | 2018-05-28 15:58 | Progress Note ---
Assessment and Plan Assessment and plan: Persistent atrial fibrillation/flutter - Patient is on xarelto, metoprolol and diltiazem - rate is controlled but still in fibrillation - Cardiology consulted and said so will do cardioversion if still in atrial fibrillation in the morning Cardiomyopathy - Improved, ejection fraction is 50% DVT prophylaxis - Continue Xarelto Disposition - Continue inpatient care History Interval history: Patient was seen in neurology this morning, patient is complaining shortness of breath on exertion. Hospitalist Physical - Physical exam Narrative exam: Not in cardiopulmonary distress. The patient appeared well nourished and normally developed. Vital signs as documented. Head exam is unremarkable. No scleral icterus . Neck is without jugular venous distension, thyromegaly, or carotid bruits. Lungs are clear to auscultation. Cardiac exam reveals irregular rate and Rhythm. Abdominal exam reveals normal bowel sounds, no masses, no organomegaly and no aortic enlargement. Extremities are nonedematous and both femoral and pedal pulses are normal. 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 No focal weakness. - Constitutional Vitals: Temp Pulse Resp BP Pulse Ox 98.1 F 77 16 117/83 99 05/28/18 09:44 05/28/18 09:44 05/28/18 09:44 05/28/18 09:44 05/28/18 09:44 General appearance: Present: no acute distress Results - Labs CBC & Chem 7: 05/27/18 17:40 05/28/18 06:21 Labs: Laboratory Last Values WBC 3.8 K/mm3 (4.5-11.0) L 05/27/18 17:40 RBC 4.10 M/mm3 (3.65-5.03) 05/27/18 17:40 Hgb 11.0 gm/dl (11.8-15.2) L 05/27/18 17:40 Hct 34.5 % (35.5-45.6) L 05/27/18 17:40 MCV 84 fl (84-94) 05/27/18 17:40 MCH 27 pg (28-32) L 05/27/18 17:40 MCHC 32 % (32-34) 05/27/18 17:40 RDW 17.4 % (13.2-15.2) H 05/27/18 17:40 Plt Count 108 K/mm3 (140-440) L 05/27/18 17:40 Lymph % (Auto) 37.5 % (13.4-35.0) H 05/27/18 17:40 [place] % (Auto) 7.3 % (0.0-7.3) 05/27/18 17:40 Eos % (Auto) 1.9 % (0.0-4.3) 05/27/18 17:40 Baso % (Auto) 0.5 % (0.0-1.8) 05/27/18 17:40 Lymph # 1.4 K/mm3 (1.2-5.4) 05/27/18 17:40 [place] # 0.3 K/mm3 (0.0-0.8) 05/27/18 17:40 Eos # 0.1 K/mm3 (0.0-0.4) 05/27/18 17:40 Baso # 0.0 K/mm3 (0.0-0.1) 05/27/18 17:40 Seg Neutrophils % 52.8 % (40.0-70.0) 05/27/18 17:40 Seg Neutrophils # 2.0 K/mm3 (1.8-7.7) 05/27/18 17:40 PT 18.8 Sec. (12.2-14.9) H 05/27/18 17:40 INR 1.47 (0.87-1.13) H 05/27/18 17:40 APTT 36.6 Sec. (24.2-36.6) 05/27/18 17:40 D-Dimer 135.00 ng/mlDDU (0-234) 05/27/18 17:40 Sodium 141 mmol/L (137-145) 05/28/18 06:21 Potassium 4.7 mmol/L (3.6-5.0) 05/28/18 06:21 Chloride 109.6 mmol/L (98-107) H 05/28/18 06:21 Carbon Dioxide 21 mmol/L (22-30) L 05/28/18 06:21 Anion Gap 15 mmol/L 05/28/18 06:21 BUN 10 mg/dL (9-20) 05/28/18 06:21 Creatinine 0.9 mg/dL (0.8-1.5) 05/28/18 06:21 Estimated GFR > 60 ml/min 05/28/18 06:21 BUN/Creatinine Ratio 11 % 05/28/18 06:21 Glucose 101 mg/dL (75-100) H 05/28/18 06:21 Calcium 8.8 mg/dL (8.4-10.2) 05/28/18 06:21 Total Bilirubin 0.70 mg/dL (0.1-1.2) 05/28/18 06:21 AST 34 units/L (5-40) 05/28/18 06:21 ALT 14 units/L (7-56) 05/28/18 06:21 Alkaline Phosphatase 100 units/L (35-129) 05/28/18 06:21 Troponin T < 0.010 ng/mL (0.00-0.029) 05/27/18 22:47 NT-Pro-B Natriuret Pep 2437 pg/mL (0-900) H 05/27/18 17:40 Total Protein 6.4 g/dL (6.3-8.2) 05/28/18 06:21 Albumin 3.6 g/dL (3.9-5) L 05/28/18 06:21 Albumin/Globulin Ratio 1.3 % 05/28/18 06:21 Urine Opiates Screen Presumptive negative 05/28/18 06:00 Urine Methadone Screen Presumptive negative 05/28/18 06:00 Ur Barbiturates Screen Presumptive negative 05/28/18 06:00 Ur Phencyclidine Scrn Presumptive negative 05/28/18 06:00 Ur Amphetamines Screen Presumptive negative 05/28/18 06:00 U Benzodiazepines Scrn Presumptive negative 05/28/18 06:00 Urine Cocaine Screen Presumptive negative 05/28/18 06:00 U Marijuana (THC) Screen Presumptive negative 05/28/18 06:00 Drugs of Abuse Note Disclamer 05/28/18 06:00 Plasma/Serum Alcohol 0.11 % (0-0.07) H 05/27/18 17:40
--- NOTE | 2018-05-28 16:46 | Cat Scan Report ---
PROCEDURE: CT HEAD/BRAIN WO CON TECHNIQUE: Axial helical imaging from the skull base to the vertex. HISTORY: Headaches COMPARISONS: Head CT dated January 12, 2018 FINDINGS: There is no evidence of an acute intracranial process, intracranial hemorrhage or mass effect. Ventricular size is concordant with the degree of atrophy. The visualized portions of the orbits, paranasal and mastoid sinuses are notable for a small deformit y of the medial wall of the left orbit which may represent sequela of previous medial orbital wall fr acture or may be congenital in nature. The visualized portions of the cervical spine is notable for evidence of cervical spondylosis. IMPRESSION: 1. No evidence of an acute intracranial process, intracranial hemorrhage or mass effect. If further imaging is required, MRI may be helpful for further evaluation. 2. Evidence of cervical spondylosis. This document is electronically signed by Tawana Romano MD., May 28 2018 04:43:31 PM ET
[2018-05-29] MEDS: SODIUM CHLORIDE FLUSH SYRINGE 10 ML IV SCH ×3 (01:24→21:53)
[2018-05-29 07:18] LABS: BUN/Creatinine Ratio 13; Blood Urea Nitrogen 10 mg/dL (9-20); Calcium 8.5 mg/dL (8.4-10.2); Hemolysis Index 4
[2018-05-29] MEDS ORDERED: SUBLIMAZE ONE (08:54)
[2018-05-29] MEDS ORDERED: VERSED ONE (08:54)
[2018-05-29] MEDS ORDERED: DIPRIVAN 10 MG/ML IV ONE ×2 (08:55)
[2018-05-29] MEDS ORDERED: NACL 0.9% 1000 ML 1,000 ML ONE (09:34)
--- NOTE | 2018-05-29 09:55 | Event Note ---
Date: 05/29/18 Patient was referred for direct current cardioversion for symptomatic atrial flutter that persists despite optimal medical therapy. By his history, the recurrent symptoms have been ongoing less than 48 hours. He also reports optimal compliance with chronic oral anticoagulation therapy. We have fully informed him and his family at the bedside of risks of cardioversion including but not limited to acute CVA. He understands risks and is willing to proceed.
[2018-05-29] MEDS ORDERED: LOPRESSOR IV ONE ×2 (10:08→10:25)
--- NOTE | 2018-05-29 11:08 | Procedure Note ---
Date of procedure: 05/29/18 Pre-op diagnosis: atrial flutter Post-op diagnosis: same Procedure: Procedure note: After informed consent, the patient was given intravenous propofol by anesthesia, following which we performed synchronized, direct current cardioversion with 100J. Successful cardioversion obtained with immediate reversion to a stable, normal sinus rhythm. No complications. Recommendations: We will increase oral metoprolol to 50 mg every 8 hours. We'll stop intravenous amiodarone, and transition to oral amiodarone 200-400 mg daily. The patient is stable for cardiac discharge later this afternoon. Anesthesia: MAC Surgeon: NICKOLAS ARIAS Estimated blood loss: none Pathology: none Condition: stable Disposition: floor
[2018-05-29] MEDS: CORDARONE PO SCH ×2 (13:18→21:52)
[2018-05-29] MEDS: BABY ASPIRIN PO SCH (13:18)
[2018-05-29] MEDS: LOPRESSOR PO SCH (13:18)
[2018-05-29] MEDS: PEPCID PO SCH ×2 (13:19→21:53)
[2018-05-29] MEDS: XARELTO PO SCH (13:19)
[2018-05-29] MEDS ORDERED: LOPRESSOR PO SCH (14:00)
--- NOTE | 2018-05-29 15:32 | Progress Note ---
Assessment and Plan Assessment and plan: Persistent atrial fibrillation/flutter - Patient is on xarelto, metoprolol and diltiazem - rate is controlled - Patient had cardioversion this morning Cardiomyopathy - Improved, ejection fraction is 50% DVT prophylaxis - Continue Xarelto Disposition - will be Dc in AM. History Interval history: Patient was seen in neurology this morning, patient didn't have any complaints. Hospitalist Physical - Physical exam Narrative exam: Not in cardiopulmonary distress. The patient appeared well nourished and normally developed. Vital signs as documented. Head exam is unremarkable. No scleral icterus . Neck is without jugular venous distension, thyromegaly, or carotid bruits. Lungs are clear to auscultation. Cardiac exam reveals regular rate and Rhythm. Abdominal exam reveals normal bowel sounds, no masses, no organomegaly and no aortic enlargement. Extremities are nonedematous and both femoral and pedal pulses are normal. 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 No focal weakness. - Constitutional Vitals: Temp Pulse Resp BP Pulse Ox 97.8 F 71 18 129/97 94 05/29/18 05:36 05/29/18 05:36 05/29/18 05:36 05/29/18 05:36 05/29/18 05:36 General appearance: Present: no acute distress Results - Labs CBC & Chem 7: 05/27/18 17:40 05/29/18 06:00 Labs: Laboratory Last Values WBC 3.8 K/mm3 (4.5-11.0) L 05/27/18 17:40 RBC 4.10 M/mm3 (3.65-5.03) 05/27/18 17:40 Hgb 11.0 gm/dl (11.8-15.2) L 05/27/18 17:40 Hct 34.5 % (35.5-45.6) L 05/27/18 17:40 MCV 84 fl (84-94) 05/27/18 17:40 MCH 27 pg (28-32) L 05/27/18 17:40 MCHC 32 % (32-34) 05/27/18 17:40 RDW 17.4 % (13.2-15.2) H 05/27/18 17:40 Plt Count 108 K/mm3 (140-440) L 05/27/18 17:40 Lymph % (Auto) 37.5 % (13.4-35.0) H 05/27/18 17:40 [place] % (Auto) 7.3 % (0.0-7.3) 05/27/18 17:40 Eos % (Auto) 1.9 % (0.0-4.3) 05/27/18 17:40 Baso % (Auto) 0.5 % (0.0-1.8) 05/27/18 17:40 Lymph # 1.4 K/mm3 (1.2-5.4) 05/27/18 17:40 [place] # 0.3 K/mm3 (0.0-0.8) 05/27/18 17:40 Eos # 0.1 K/mm3 (0.0-0.4) 05/27/18 17:40 Baso # 0.0 K/mm3 (0.0-0.1) 05/27/18 17:40 Seg Neutrophils % 52.8 % (40.0-70.0) 05/27/18 17:40 Seg Neutrophils # 2.0 K/mm3 (1.8-7.7) 05/27/18 17:40 PT 18.8 Sec. (12.2-14.9) H 05/27/18 17:40 INR 1.47 (0.87-1.13) H 05/27/18 17:40 APTT 36.6 Sec. (24.2-36.6) 05/27/18 17:40 D-Dimer 135.00 ng/mlDDU (0-234) 05/27/18 17:40 Sodium 137 mmol/L (137-145) 05/29/18 06:00 Potassium 4.0 mmol/L (3.6-5.0) 05/29/18 06:00 Chloride 106.2 mmol/L (98-107) 05/29/18 06:00 Carbon Dioxide 20 mmol/L (22-30) L 05/29/18 06:00 Anion Gap 15 mmol/L 05/29/18 06:00 BUN 10 mg/dL (9-20) 05/29/18 06:00 Creatinine 0.8 mg/dL (0.8-1.5) 05/29/18 06:00 Estimated GFR > 60 ml/min 05/29/18 06:00 BUN/Creatinine Ratio 13 % 05/29/18 06:00 Glucose 102 mg/dL (75-100) H 05/29/18 06:00 Calcium 8.5 mg/dL (8.4-10.2) 05/29/18 06:00 Total Bilirubin 0.70 mg/dL (0.1-1.2) 05/28/18 06:21 AST 34 units/L (5-40) 05/28/18 06:21 ALT 14 units/L (7-56) 05/28/18 06:21 Alkaline Phosphatase 100 units/L (35-129) 05/28/18 06:21 Troponin T < 0.010 ng/mL (0.00-0.029) 05/27/18 22:47 NT-Pro-B Natriuret Pep 2437 pg/mL (0-900) H 05/27/18 17:40 Total Protein 6.4 g/dL (6.3-8.2) 05/28/18 06:21 Albumin 3.6 g/dL (3.9-5) L 05/28/18 06:21 Albumin/Globulin Ratio 1.3 % 05/28/18 06:21 Urine Opiates Screen Presumptive negative 05/28/18 06:00 Urine Methadone Screen Presumptive negative 05/28/18 06:00 Ur Barbiturates Screen Presumptive negative 05/28/18 06:00 Ur Phencyclidine Scrn Presumptive negative 05/28/18 06:00 Ur Amphetamines Screen Presumptive negative 05/28/18 06:00 U Benzodiazepines Scrn Presumptive negative 05/28/18 06:00 Urine Cocaine Screen Presumptive negative 05/28/18 06:00 U Marijuana (THC) Screen Presumptive negative 05/28/18 06:00 Drugs of Abuse Note Disclamer 05/28/18 06:00 Plasma/Serum Alcohol 0.11 % (0-0.07) H 05/27/18 17:40
[2018-05-30 08:40] VITALS: BP 133/99
--- NOTE | 2018-05-30 09:39 | Progress Note ---
Assessment and Plan 1. Symptomatic paroxysmal atrial flutter Patient reports strict compliance with xarelto - no interruption over the last 4 weeks s/p DCCV this admission 2. Cardiomyopathy, resolving LVEF 44% by MPI and LVEF 50% by echo No ischemia by MPI 01/2016 LVEF 50-55% by echo 09/2017 Normal MPI 09/2017 3. Alcohol abuse Recommendations: Advised cessation of alcohol use Continue po amiodarone Decrease metoprolol to bid Continue xarelto Follow-up as outpatient in 2-4 weeks May go home cardiac fonseca Subjective Date of service: 05/30/18 Principal diagnosis: Atrial flutter Interval history: Patient is feeling much better this morning, maintaining SR Objective Vital Signs Temp Pulse Resp BP BP Pulse Ox 05/30/18 08:39 98.5 F 62 20 133/99 97 05/30/18 06:49 98.3 F 65 20 136/94 93 05/30/18 01:20 98.7 F 68 20 128/97 94 05/29/18 21:20 97.6 F 61 18 136/97 95 05/29/18 21:03 59 L 96 05/29/18 20:25 61 05/29/18 15:00 97.7 F 18 102/72 05/29/18 14:47 64 94 - Physical Examination HEENT: Positive: PERRL Neck: Positive: trachea midline Cardiac: Positive: Reg Rate and Rhythm Lungs: Positive: Normal Exam Neuro: Positive: Grossly Intact
[2018-05-30] MEDS ORDERED: LOPRESSOR PO SCH (10:00)
[2018-05-30] MEDS: CORDARONE PO SCH (10:31)
[2018-05-30] MEDS: XARELTO PO SCH (10:31)
[2018-05-30] MEDS: BABY ASPIRIN PO SCH (10:31)
[2018-05-30] MEDS: PEPCID PO SCH (10:31)
[2018-05-30] MEDS: SODIUM CHLORIDE FLUSH SYRINGE 10 ML IV SCH (10:34)
--- NOTE | 2018-05-30 11:36 | Discharge Summary ---
Providers - Providers Date of Admission: 05/27/18 19:23 Attending physician: PARKER ROBLES MD 05/28/18 06:02 Consult to Physician [CONS] Routine Comment: Consulting Provider: NICKOLAS ARIAS Physician Instructions: Reason For Exam: SVT Primary care physician: MURTAZA PIÑA Hospitalization Reason for admission: A.trial flutter with SOB Condition: Stable Procedures: Cardioversion Hospital course: Patient is a 68 year old male that has history of paroxysmal atrial flutter, on xarelto for oral anticoagulation, who was brought in with shortness of breath, dizziness and palpitations, found to be in rapid atrial flutter. Cardiac consultation requested. In the emergency department, patient was treated with intravenous metoprolol but remains in atrial flutter. Rate is now controlled. Patient denies chest pain and there was no syncope. Reports intermittent headaches. at bedside reports the patient has an episode of "shaking all over" a few days ago. Patient denies history of seizures. 1. Symptomatic paroxysmal atrial flutter Patient reports strict compliance with xarelto - no interruption over the last 4 weeks 2. Cardiomyopathy, resolving LVEF 44% by MPI and LVEF 50% by echo No ischemia by MPI 01/2016 LVEF 50-55% by echo 09/2017 Normal MPI 09/2017 3. Alcohol abuse Advised cessation of alcohol use Patient was treated with IV amiodarone and atill atrial flutter persistedand cardiology consulted and did cardioversion. No need for ADITYA as patient reports strict compliance with xarelto for > 4 weeks. After cardioversion patient was in sinus rhythm and symptoms resolved and discharged home with the advice to continue xarelto. Disposition: - TO HOME OR SELFCARE Time spent for discharge: 32 minutes - Discharge Diagnoses (1) Atrial flutter, paroxysmal Status: Acute (2) SOB (shortness of breath) Status: Acute Core Measure Documentation - Palliative Care Palliative Care/ Comfort Measures: Not Applicable - Core Measures Any of the following diagnoses?: history only (CHF) Exam - Physical Exam Narrative exam: Not in cardiopulmonary distress. The patient appeared well nourished and normally developed. Vital signs as documented. Head exam is unremarkable. No scleral icterus . Neck is without jugular venous distension, thyromegaly, or carotid bruits. Lungs are clear to auscultation. Cardiac exam reveals regular rate and Rhythm. Abdominal exam reveals normal bowel sounds, no masses, no organomegaly and no aortic enlargement. Extremities are nonedematous and both femoral and pedal pulses are normal. [employer] THERAPIST: Alert and oriented 3. No focal weakness. - Constitutional Vitals: Temp Pulse Resp BP Pulse Ox 98.5 F 62 20 133/99 97 05/30/18 08:39 05/30/18 10:33 05/30/18 08:39 05/30/18 10:33 05/30/18 08:39 Plan Activity: no restrictions Weight Bearing Status: Full Weight Bearing Diet: low salt Follow up with: MURTAZA PIÑA MD [Primary Care Provider] - 7 Days ANGELA CALDWELL MD [Staff Physician] - 14 Days Prescriptions: ALBUTEROL Inhaler(NF) [VENTOLIN Inhaler(NF)] 1 puff IH Q4H PRN #1 inha PRN Reason: Dyspnea
== END 2018-05-30 17:33 | disposition home or self-care (01) | DRG 309 ==
LOC: ED 17:14 → 4A 19:23
PROVIDERS: ADMIT Internal Medicine; ATTEND Internal Medicine
PROC: 5A2204Z Restoration of Cardiac Rhythm, Single (ICD-10-PCS; principal; 2018-05-29)
DX: I48.92 Unspecified atrial flutter (principal); I50.32 Chronic diastolic (congestive) heart failure; I42.9 Cardiomyopathy, unspecified; I48.91 Unspecified atrial fibrillation; I50.9 Heart failure, unspecified; I47.1 Supraventricular tachycardia; F10.129 Alcohol abuse with intoxication, unspecified; I11.0 Hypertensive heart disease with heart failure; I25.10 Atherosclerotic heart disease of native coronary artery without angina pectoris; F17.200 Nicotine dependence, unspecified, uncomplicated; Z71.41 Alcohol abuse counseling and surveillance of alcoholic; Z79.82 Long term (current) use of aspirin; Z79.01 Long term (current) use of anticoagulants; Z79.899 Other long term (current) drug therapy; I25.2 Old myocardial infarction; Z95.5 Presence of coronary angioplasty implant and graft
CPT/HCPCS: 36415; 70450; 71046; 80048; 80053; 80307; 80320; 83880; 84484; 85025; 85379; 85610; 85730; 92960; 93005; 93010; 96374; G0378; G0480; J0282; J2250; J2704; J3010; J7030; J7060